=== PATIENT | female | born 1960 | race Caucasian/White ===

== ENCOUNTER 2016-10-13 11:47 | Day surgery (SDC) | payer BC ==
--- NOTE | ~2016-10-13 | EGD ---
EGD REPORT [facility] [address] [address] NAME: MARY TAYLOR : [birth year] STATUS : REG [facility] PAT#: [id number] AGE: 56 ADM/REG DATE : 10/13/16 MR#: [id number] REPORT SERV DATE: 10/13/16 DICTATED BY: ELIAN HEBERT DATE: 10/13/16 REPORT STATUS : Draft [facility] DATE: 10/13/16 Endoscopy Center Patient Name: Mary Taylor Date of : 1960 Attending MD: ELIAN HEBERT MD Procedure Date No Time: 10/13/2016 Procedure: Colonoscopy Indications: For therapy of colon polyps Referring MD: CARMEN WAN MD Medicines: Monitored Anesthesia Care Complications: No immediate complications. Procedure: Pre-Anesthesia Assessment: - ASA Grade Assessment: III - A patient with severe systemic disease. After I obtained informed consent, the scope was passed under direct vision. Throughout the procedure, the patient's blood pressure, pulse, and oxygen saturations were monitored continuously. The CF [id number] was introduced through the anus and advanced to the cecum, identified by appendiceal orifice and ileocecal valve. The colonoscopy was performed with moderate difficulty due to significant looping. Successful completion of the procedure was aided by applying abdominal pressure. The patient tolerated the procedure well. The quality of the bowel preparation was adequate. Findings: The digital rectal exam was normal. Pertinent negatives include no palpable rectal lesions. A pedunculated polyp was found in the sigmoid colon. The polyp was 12 mm in size. 1 cc of epi 1:10,000 injected into the stalk of polyp. The polyp was removed with a hot snare. Resection and retrieval were complete. Small amount of bleeding post removal. To stop current bleeding and prevent bleeding after the polypectomy, one hemostatic clip was successfully placed. There was no bleeding at the end of the procedure. A sessile polyp was found in the ascending colon. The polyp was 20 mm in size. The polyp was removed with a saline injection-lift technique using a hot snare. 2 cc of saline injected into the base of the polyp. Polyp was removed in piecemeal fashion. Resection and retrieval were complete. Hemorrhoids were found during retroflexion and were moderate. Impression: - One 12 mm polyp in the sigmoid colon. Resected and retrieved. Clip was placed. - One 20 mm polyp in the ascending colon. Resected and EGD REPORT [address] [place]. [address] NAME: MARY TAYLOR : [birth year] STATUS : REG [facility] PAT#: [id number] AGE: 56 ADM/REG DATE : 10/13/16 MR#: [id number] REPORT SERV DATE: 10/13/16 DICTATED BY: ELIAN HEBERT DATE: 10/13/16 REPORT STATUS : Draft TRANSCRIBED BY: [employer] DATE: 10/13/16 retrieved. - Hemorrhoids. Recommendation: - Patient has a contact number available for emergencies. The signs and symptoms of potential delayed complications were discussed with the patient. Return to normal activities tomorrow. Written discharge instructions were provided to the patient. - Regular diet. - Continue present medications. - Resume Plavix (clopidogrel) at prior dose in 5 days. Refer to managing physician for further adjustment of therapy. - Repeat colonoscopy for surveillance based on pathology results. - Return to GI clinic PRN. Procedure Code(s): --- Professional --- 62769, Colonoscopy, flexible, proximal to splenic flexure; with removal of tumor(s), polyp(s), or other lesion(s) by snare technique 33863, Colonoscopy, flexible, proximal to splenic flexure; with directed submucosal injection(s), any substance Diagnosis Code(s): --- Professional --- D12.2, Benign neoplasm of ascending colon D12.5, Benign neoplasm of sigmoid colon K64.9, Unspecified hemorrhoids K63.5, Polyp of colon CPT copyright 2013 [employer]. All rights reserved. The codes documented in this report are preliminary and upon comber operator review may be revised to meet current compliance requirements. ELIAN HEBERT MD 10/13/2016 2:23 PM This report has been signed electronically. Number of Addenda: 1 Note Initiated On: 10/13/2016 1:21 PM Scope Withdrawal Time 0 hours 40 minutes 18 seconds EGD REPORT [facility] [address] [place] [address] NAME: MARY TAYLOR : [birth year] STATUS : [facility] PAT#: [id number] AGE: 56 ADM/REG DATE : 10/13/16 MR#: [id number] REPORT SERV DATE: 10/13/16 DICTATED BY: ELIAN HEBERT DATE: 10/13/16 REPORT STATUS : Draft TRANSCRIBED BY: [employer] DATE: 10/13/16 Addendum Number: 1 Addendum Date: 10/13/2016 2:38 PM Small angioectasia in the ascending colon. This lesion was not bleeding. ELIAN HEBERT MD 10/13/2016 2:39 PM This report has been signed electronically. [place] [id number]
--- NOTE | ~2016-10-13 | EGD ---
EGD REPORT [facility] [address] [address] NAME: MARY TAYLOR : 62 STATUS : REG [facility] [place] PAT#: [id number] AGE: 56 ADM/REG DATE : 10/13/16 MR#: [id number] REPORT SERV DATE: 10/13/16 DICTATED BY: ELIAN HEBERT DATE: 10/13/16 REPORT STATUS : Draft [facility] DATE: 10/13/16 Endoscopy Center Patient Name: Mary Taylor Date of : 1960 Attending MD: ELIAN HEBERT MD Procedure Date No Time: 10/13/2016 Procedure: Colonoscopy Indications: For therapy of colon polyps Referring MD: CARMEN WAN MD Medicines: Monitored Anesthesia Care Complications: No immediate complications. Procedure: Pre-Anesthesia Assessment: - ASA Grade Assessment: III - A patient with severe systemic disease. After I obtained informed consent, the scope was passed under direct vision. Throughout the procedure, the patient's blood pressure, pulse, and oxygen saturations were monitored continuously. The CF [id number] [id number] was introduced through the anus and advanced to the cecum, identified by appendiceal orifice and ileocecal valve. The colonoscopy was performed with moderate difficulty due to significant looping. Successful completion of the procedure was aided by applying abdominal pressure. The patient tolerated the procedure well. The quality of the bowel preparation was adequate. Findings: The digital rectal exam was normal. Pertinent negatives include no palpable rectal lesions. A pedunculated polyp was found in the sigmoid colon. The polyp was 12 mm in size. 1 cc of epi 1:10,000 injected into the stalk of polyp. The polyp was removed with a hot snare. Resection and retrieval were complete. Small amount of bleeding post removal. To stop current bleeding and prevent bleeding after the polypectomy, one hemostatic clip was successfully placed. There was no bleeding at the end of the procedure. A sessile polyp was found in the ascending colon. The polyp was 20 mm in size. The polyp was removed with a saline injection-lift technique using a hot snare. 2 cc of saline injected into the base of the polyp. Polyp was removed in piecemeal fashion. Resection and retrieval were complete. Hemorrhoids were found during retroflexion and were moderate. Impression: - One 12 mm polyp in the sigmoid colon. Resected and retrieved. Clip was placed. - One 20 mm polyp in the ascending colon. Resected and EGD REPORT [address] [place]. [address] NAME: MARY TAYLOR : [birth year] STATUS : REG [facility] [place] PAT#: [id number] AGE: 56 ADM/REG DATE : 10/13/16 MR#: [id number] REPORT SERV DATE: 10/13/16 DICTATED BY: ELIAN HEBERT DATE: 10/13/16 REPORT STATUS : Draft TRANSCRIBED BY: [employer] DATE: 10/13/16 retrieved. - Hemorrhoids. Recommendation: - Patient has a contact number available for emergencies. The signs and symptoms of potential delayed complications were discussed with the patient. Return to normal activities tomorrow. Written discharge instructions were provided to the patient. - Regular diet. - Continue present medications. - Resume Plavix (clopidogrel) at prior dose in 5 days. Refer to managing physician for further adjustment of therapy. - Repeat colonoscopy for surveillance based on pathology results. - Return to GI clinic PRN. Procedure Code(s): --- Professional --- 11693, Colonoscopy, flexible, proximal to splenic flexure; with removal of tumor(s), polyp(s), or other lesion(s) by snare technique 69079, Colonoscopy, flexible, proximal to splenic flexure; with directed submucosal injection(s), any substance Diagnosis Code(s): --- Professional --- D12.2, Benign neoplasm of ascending colon D12.5, Benign neoplasm of sigmoid colon K64.9, Unspecified hemorrhoids K63.5, Polyp of colon CPT copyright 2013 [employer]. All rights reserved. The codes documented in this report are preliminary and upon maintenance superintendent review may be revised to meet current compliance requirements. ELIAN HEBERT MD 10/13/2016 2:23 PM This report has been signed electronically. Number of Addenda: 0 Note Initiated On: 10/13/2016 1:21 PM Scope Withdrawal Time 0 hours 40 minutes 18 seconds
[~2016-10-13 11:47] MED LIST: AMARYL4 PO; ASAB PO; BUSPAR10 PO; CO Q-10200 MG; GLUCOPHAGE1000 MG PO; LYRICA75 PO; PLAVIX PO; PRAVAC PO; PRINZIDE1 TA1 PO; PROAIR HFA INH; TOUJEO; ULTRAM50 PO; VICTOZA18 MG/3 ML SC; ZYRTEC ALLGY10 MG PO
[2016-10-13 15:14] LABS: BASOPHILS 0.3 %; BASOPHILS ABSOLUTE 0.03 10/3/uL (0.0-0.16); EOSINOPHILS 1.1 %; EOSINOPHILS ABSOLUTE 0.13 10/3/uL (0.0-0.53); HEMATOCRIT 31.1 % (36.0-48.0); HEMOGLOBIN 9.3 g/dL (12.0-16.0); IMMATURE GRANULOCYTES 0.4 %; IMMATURE GRANULOCYTES ABSOLUTE 0.05 10/3/uL (0.0-0.11); LYMPHOCYTES 19.5 %; LYMPHOCYTES ABSOLUTE 2.25 10/3/uL (0.67-4.30); MEAN CORPUS HGB CONC 29.9 g/dL (32.0-36.0); MEAN CORPUSCULAR HEMOGLOB 23.9 pg (26.0-34.0); MEAN CORPUSCULAR VOLUME 79.9 fL (80-100); MEAN PLATELET VOLUME 9.1 fL (9.2-13.0); MONOCYTES 5.5 %; MONOCYTES ABSOLUTE 0.63 10/3/uL (0.21-1.20); NEUTROPHILS 73.2 %; NEUTROPHILS ABSOLUTE 8.42 10/3/uL (2.02-8.40); PLATELET COUNT 466 10/3/uL (150-400); RBC DISTRIBUTION WIDTH 14.7 % (12.0-16.0); RED CELL COUNT 3.89 10/6/uL (4.0-5.6); WHITE BLOOD CELLS 11.5 10/3/uL (4.5-10.5)
[2016-10-13 15:17] LABS: MANUAL DIFF NO %
== END 2016-10-13 23:59 | disposition home or self-care (01) ==
LOC: DMU 11:47
PROVIDERS: Internal Medicine Gastroenterology
PROC: 3E0H8GC Introduction of Other Therapeutic Substance into Lower GI, Via Natural or Artificial Opening Endoscopic (ICD-10-PCS; 2016-10-13)
PROC: 0DBK8ZX Excision of Ascending Colon, Via Natural or Artificial Opening Endoscopic, Diagnostic (ICD-10-PCS; principal; 2016-10-13 13:30)
PROC: 0DBN8ZX Excision of Sigmoid Colon, Via Natural or Artificial Opening Endoscopic, Diagnostic (ICD-10-PCS; 2016-10-13 13:30)
DX: D12.5 Benign neoplasm of sigmoid colon (principal); D12.2 Benign neoplasm of ascending colon; I10 Essential (primary) hypertension; J44.9 Chronic obstructive pulmonary disease, unspecified; K21.9 Gastro-esophageal reflux disease without esophagitis; E11.40 Type 2 diabetes mellitus with diabetic neuropathy, unspecified; L40.9 Psoriasis, unspecified; F41.9 Anxiety disorder, unspecified; E78.00 Pure hypercholesterolemia, unspecified; I73.9 Peripheral vascular disease, unspecified; D64.9 Anemia, unspecified; Z86.010 Personal history of colon polyps; Z88.2 Allergy status to sulfonamides; Z88.1 Allergy status to other antibiotic agents; Z79.82 Long term (current) use of aspirin; Z79.899 Other long term (current) drug therapy; Z79.4 Long term (current) use of insulin; Z98.890 Other specified postprocedural states
CPT/HCPCS: 82962; 85025; 88305; A9270-GY; J2405